=== PATIENT | male | born 1950 | race Caucasian/White ===

== ENCOUNTER 2023-11-26 12:46 | Outpatient (OUT) | payer MEDICARE, SELFPAY ==
--- NOTE | 2023-11-26 12:51 | US_ITS ---
[place] [id number] Patient Name: CHRISTIANO CONNELL MRN: [id number] date: 1950 Sex: M Assigned Patient Location: RAD Current Patient Location: RAD Accession/Order Number: [id number] Exam Date: 11/26/2023 12:55 Report Date: 11/26/2023 13:45 At the request of: NON-STAFF PHYSICIAN Procedure: US venous doppler LE BI EXAM: US venous doppler LE BI HISTORY: Hypercoagulable state, secondary, Anticoagulation management COMPARISON: None. TECHNIQUE: Grayscale, color and Doppler FINDINGS: Region: Bilateral legs Thrombus: No thrombus in the deep vein system Flow: Normal. 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
== END 2023-11-26 12:47 | disposition home or self-care (01) ==
LOC: RAD 12:46
PROVIDERS: PCP Internal Medicine
DX: D68.69 Other thrombophilia (principal); Z51.81 Encounter for therapeutic drug level monitoring; Z79.01 Long term (current) use of anticoagulants; C49.9 Malignant neoplasm of connective and soft tissue, unspecified; I82.812 Embolism and thrombosis of superficial veins of left lower extremity
CPT/HCPCS: 93970

== ENCOUNTER 2023-12-27 08:45 | Outpatient (OUT) | payer MEDICARE, SELFPAY ==
--- NOTE | 2023-12-27 08:51 | CA_ITS ---
Patient Name: CHRISTIANO CONNELL MR#: [id number] : 1950 Exam Date: 12/27/2023 Ordering Doctor: DR. CRISTHIAN ESPINOZA ECHOCARDIOGRAM REPORT PROCEDURE: CA ECHO DOPPLER COMPLETE INDICATIONS: Pulmonary embolism COMPARISON: None. DESCRIPTION: COMPLETE ECHOCARDIOGRAM Real-time transthoracic echocardiography with 2D, M-mode, spectral and color flow Doppler performed. QUALITY: Technical quality was adequate. LEFT VENTRICLE: Normal chamber size. Mild concentric left ventricular hypertrophy. LV EF: Normal left ventricular ejection fraction, (55%). DIASTOLIC: Normal diastolic function. ATRIAL SEPTUM: LEFT ATRIUM: Normal chamber size. RIGHT ATRIUM: Mild dilatation. RIGHT VENTRICLE: Normal chamber size. Normal right ventricular systolic function. TRICUSPID VALVE: Normal mobility and thickness. No stenosis with trivial regurgitation. Unable to assess right-sided pressures due to lack of measurable tricuspid regurgitation. MITRAL VALVE: Normal mobility and thickness. No evidence of mitral valve stenosis. Mild mitral annular calcification. No mitral regurgitation. AORTIC VALVE: Normal trileaflet appearance. No visible sclerosis. Normal leaflet mobility. No evidence of aortic valve stenosis. No aortic regurgitation. AORTIC ROOT: Normal diameter and appearance. PULMONIC VALVE: Normal thickness and mobility. No stenosis. No regurgitation. PERICARDIUM: No evidence of pericardial effusion. IVC: Collapses with inspirations. Normal size. PLEURA: CONCLUSION: 1. Mild concentric left ventricular hypertrophy with normal systolic function. LVEF is 55%. 2. Normal right ventricular size and systolic function. 3. No significant valvular dysfunction. Adult Echocardiography Procedure Report Left Ventricle LVEDD (3.7 - 5.6 cm): 4.35 cm LVESD (2.2 - 4.0 cm): 3.14 cm LVIVS thickness (0.6 - 1.2 cm): 1.11 cm LVPW thickness (0.5 - 1.0 cm): 1.17 cm e': 0.09 m/s E - e': 9.70 LVOT Max Gradient: 6.23 mm[Hg] LVOT Area (cm2): 1.25 m/s Peak Velocity (LVOT): 1.25 m/s Mean Velocity (LVOT): 0.81 m/s LVOT Diameter 2.45 cm Left Ventricular Ejection Fraction: 55 % Left Atrium LA Volume Index (2D A2C): 27.45 ml/m2 Left Atrium Systolic Dimension: 3.48 cm Mitral Valve MV E to A Ratio: 0.88 Mitral Valve A-Wave Peak Velocity: 0.95 m/s Mitral Valve E-Wave Peak Velocity: 0.84 m/s Right Ventricle RV Internal Diastolic Dimension: 3.96 cm Aorta AO Root Diam: 3.28 cm Ascending Ao Diam: 2.78 cm Aortic Valve AoV Area ([place]): 4.18 cm2, 4.18 cm2 AoV Area (VTI): 3.68 cm2, 3.68 cm2 Peak Velocity(Antegrade Flow): 1.40 m/s Peak Gradient(Antegrade Flow): 7.87 mm[Hg] Mean Velocity(Antegrade Flow): 0.87 m/s Mean Gradient(Antegrade Flow): 3.69 mm[Hg] Velocity Time Integral: 25.68 cm Tricuspid Valve Peak Velocity (Regurgitant Flow): 1.60 m/s, 1.92 m/s Pulmonic Valve Peak Velocity: 0.87 m/s Peak Gradient: 2.86 mm[Hg], 3.26 mm[Hg] Right Atrium Right Atrium Systolic Pressure: 84.94 ml, 84.94 ml Dictated by: Benny Adair M.D. on 12/31/2023 at 16:49 Approved by: Benny Adair M.D. on 12/31/2023 at 17:02
== END 2023-12-27 08:46 | disposition home or self-care (01) ==
LOC: CARD 08:46
PROVIDERS: PCP Internal Medicine
DX: I26.99 Other pulmonary embolism without acute cor pulmonale (principal)
CPT/HCPCS: 93306; 93356